=== PATIENT | male | born 1990 | race Caucasian/White ===

== ENCOUNTER 2018-05-10 11:37 | Inpatient (IN) ==
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
[2018-05-10 14:06] LABS: Baso % (Auto) 0.2 % (0.0-2.0); Eos % (Auto) 0.4 % (0.0-4.0); Hematocrit 48.3 % (39.0-51.0); Hemoglobin 16.1 gm/dL (13.0-17.0); Lymph # (Auto) 0.9 th/mm3 (1.0-4.8); Lymph % (Auto) 12.1 % (9.0-44.0); Mean Corpuscular HGB Conc 33.3 % (32.0-36.0); Mean Corpuscular Hemoglobin 32.1 pg (27.0-34.0); Mean Corpuscular Volume 96.2 fL (80.0-100.0); Mean Platelet Volume 8.5 fL (7.0-11.0); Mono # (Auto) 0.6 th/mm3 (0.0-0.9); Mono % (Auto) 8.9 % (0.0-8.0); Neut # (Auto) 5.5 th/mm3 (1.8-7.7); Neut % (Auto) 78.4 % (16.0-70.0); Platelet Count 215 th/mm3 (150-450); Red Blood Count 5.02 mil/mm3 (4.50-5.90); Red Cell Distribution Width 13.7 % (11.6-17.2)
[2018-05-10 14:21] LABS: Alanine Aminotransferase 19 U/L (12-78); Albumin 4.2 g/dL (3.4-5.0); Anion Gap 9 meq/L (5-15); Aspartate Aminotransferase 11 U/L (15-37); Blood Urea Nitrogen 15 mg/dL (7-18); Calcium 8.9 mg/dL (8.5-10.1); Carbon Dioxide 24.9 meq/L (21.0-32.0); Chloride 106 meq/L (98-107); Glomerular Filtration Rate Greater Than 89 mL/min (>89); Glucose,Random 116 mg/dL (74-106); Magnesium 2.2 mg/dL (1.5-2.5); Potassium 3.7 meq/L (3.5-5.1); Sodium 140 meq/L (136-145)
[2018-05-10 14:31] LABS: Alkaline Phosphatase 65 U/L (45-117); Thyroid Stimulating Hormone 0.295 uIU/mL (0.358-3.740); Total Protein 7.8 g/dL (6.4-8.2)
[2018-05-10] MEDS ORDERED: QUEtiapine 25 MG Tablet PO ONE (15:27)
[2018-05-10 16:35] LABS: Amphetamine Screen,Urine Neg (Neg); Barbiturate Screen,Urine Neg (Neg); Cannabinoid Screen,Urine Pos (Neg); Cocaine Screen,Urine Neg (Neg)
[2018-05-10 16:38] LABS: Opiate Screen,Urine Neg (Neg)
[2018-05-10] MEDS ORDERED: Aluminum/Magnesium/Simethacone Susp 30 ML UDC PO PRN (20:19)
[2018-05-10] MEDS ORDERED: Acetaminophen 325 MG Tablet PO PRN (20:19)
[2018-05-11 11:12] LABS: Carbon Dioxide 29.7 meq/L (21.0-32.0); Potassium 4.1 meq/L (3.5-5.1)
[2018-05-11 11:15] LABS: Chol/HDL Ratio 3.35 Ratio
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
[2018-05-11 14:37] LABS: Hemoglobin A1c 5.1 % (4.3-6.0)
[2018-05-11] MEDS: LORazepam 1 MG Tablet PO PRN (17:22)
[2018-05-11] MEDS: Gabapentin 300 MG Capsule PO SCH (17:22)
[2018-05-12] MEDS: Gabapentin 300 MG Capsule PO SCH ×3 (08:45→17:54)
--- NOTE | 2018-05-12 10:32 | P.CONPSY ---
Provisional Diagnosis Admission Date: May 10, 2018 18:19 [place] I.: 1. Schizophrenia, unspecified type, acute exacerbation 2. Generalized anxiety disorder [place] II.: Deferred History of Present Illness Service: Psychiatry Consult date: 05/12/18 Requesting Physician: Vaibhav Morales Reason for Consult: Second opinion for involuntary psychiatric hospitalization Primary Care Provider: UNKNOWN History of Present Illness: From Dr. Morales's H&P: Patient is a 28-year-old male with a history of schizophrenia and ADD. He presents here [facility] [place] [facility] with increased symptoms of agitation and psychosis. Patient is affiliated with [facility] and gets regular in [employer] sustainA injections. Per mother's last dose of an INVega 156 mg was on April 26. He has poor compliance with his p.o. medications. Those medications include Wellbutrin 150 mg daily, Seroquel 50 mg p.o. nightly and Cogentin 1 mg p.o. nightly. Per record and mother patient has been increasingly aggressive and bizarre. Patient is very angry at his father because he would not let him drive his own car and a cross country trip. Patient then accused his father putting shampoo in his food and wanted to poison him. He is also been given threatening looks to his family. He had an argument with his family concerning his dogs and he slapped his tWo blind dogs. Patient says he was angry because they were breathing with each other but mother says that the dogs are neutered and patient was angry that the dogs are gama. Patient has been having increasingly auditory hallucinations visual hallucinations and bizarre delusions of a girl named Nury. This is somebody that he knew from childhood and has no contact with. This Nury is yelling at him telling him he is dominant and appears at night not letting him sleep. Mood and affect is very anxious as reported by patient and his mother. He does deny depressed mood. He denies suicidal or homicidal ideation intent or plan. On my exam today, 05/12: Patient seen and examined with nurse. Chart reviewed. Case discussed with nursing staff. I have discussed the purpose of my evaluation with the patient today. On my examination today, the patient presents as delayed with significant thought blocking. He appears internally preoccupied although he denies audiovisual hallucinations. He does admit to some paranoia and says that people are trying to wake him up in the middle of the night. He does admit to lashing out violently at the family dog and says that he has a history of "trying to beat up a dog for biting my nephew" when he was about 16 years old. He denies any suicidal or violent ideation presently. He says that he likes the medications being provided to him because they make him feel "peaceful." Mood is "decent." Sleep is fair. No hypomanic or manic symptoms. Remainder of the psychiatric ROS is negative. No acute physical complaints. Past psychiatric history: The patient has a history of schizophrenia. He follows at [facility] in [place]. He reports one remote psychiatric admission. He denies a history of suicide attempts. He does admit to a history of aggression against a dog as noted above. Family history: The patient reports that his sister has dyslexia and 1 of his cousins has intellectual disability. He denies a family history of suicide. Chemical dependency history: The patient denies any abuse of drugs or alcohol. Patient's urine toxicology is positive for THC. Social history: The patient lives with his family. He has his GED. He is disabled. He is single with no children. He does keep a BB gun but denies ever having had a suicide plan or violent plan involving a gun. He denies any legal history. I have spoken with patient's mother/healthcare surrogate, Chelsea Roland today by phone. Ms. Roland notes that the patient was diagnosed with schizophrenia 4 years ago and has had multiple medication trials since then. She notes that he has been at least partially stabilized on Invega Sustenna, although he does become somewhat more symptomatic towards the end of the dosing interval. He has reportedly recently been experiencing visual hallucinations of a friend from childhood and told his mother on the phone last night that he was awoken on the unit by several of his old friends. He has no reported history of violence and is typically easy going per mother. He does reportedly believe that his family is trying to poison him. Extensive psychoeducation regarding schizophrenia diagnosis provided to mother. We reviewed treatment plan as set up by Dr. Morales. We discussed patient's legal status and plan for [place] [address] on . I spent approximately 14 minutes in telephone consultation with patient's mother. Review of Systems All other systems reviewed negative except as stated in HPI PMFSH - History History Provided By: Patient - Medical History Medical History: Medical History (Last Reviewed 05/11/18 @ 13:24 by Vaibhav Morales DO) ADHD Anxiety Schizophrenia - Surgical History Surgical History: Surgical History (Last Reviewed 05/11/18 @ 13:24 by Vaibhav Morales DO) No history of previous surgery - Tobacco History Second Hand Smoke Exposure: Yes Tobacco Use In Past 30 Days: Yes Smoking Status: Current every day smoker Tobacco Type: Cigarettes - Alcohol History How Often Do You Have a Drink Containing Alcohol: Monthly or less - Substance Use History Substance History: No History of Abuse - Travel History Recent Travel in the [facility] Within the Last 8 Weeks: No Recent Travel Out of the Country Within the Last 8 Weeks: No - Immunization History Tetanus Immunization: >5 Years Hx Influenza Vaccine This Season: No Medications and Allergies Active Medications: Active Medications Acetaminophen (Tylenol) 650 mg PO Q4H PRN PRN Reason: PAIN 1-5 OR TEMP > 101 Al Hydrox/Mg Hydrox/Simethicone (Mag-Al Plus Susp Liq) 30 ml PO Q6H PRN PRN Reason: DYSPEPSIA Al Hydroxide/Mg Hydroxide (Milk Of Magnesia Liq) 30 ml PO DAILY PRN PRN Reason: CONSTIPATION Benztropine Mesylate (Cogentin) 1 mg PO BID [facility] Last Admin: 05/12/18 08:45 Dose: 1 mg Gabapentin (Neurontin) 300 mg PO TID [facility] Last Admin: 05/12/18 08:45 Dose: 300 mg Lorazepam (Ativan) 1 mg PO Q6H PRN PRN Reason: MOD-SEVERE ANXIETY Last Admin: 05/11/18 17:22 Dose: 1 mg Lorazepam (Ativan Inj) 1 mg IM Q6H PRN PRN Reason: MOD-SEVERE ANXIETY Nicotine (Habitrol 21 Mg Patch.24 Hr) 1 patch T-DERMAL DAILY [facility] Last Admin: 05/12/18 08:47 Dose: Not Given Patch Removal (Remove Old Patch) 1 each T-DERMAL HS [facility] Last Admin: 05/11/18 20:25 Dose: Not Given Risperidone (Risperdal) 1 mg PO BID [facility] Last Admin: 05/12/18 08:45 Dose: 1 mg Allergies Allergy/AdvReac Type Severity Reaction Status Date / Time No Known Drug Allergies Allergy Mild Anxiety Verified 05/10/18 12:43 Home Medications Medication Instructions Recorded Confirmed Type benztropine 1 mg PO 05/10/18 05/10/18 History bupropion HCl [Wellbutrin XL] 150 mg PO DAILY 05/10/18 05/10/18 History paliperidone palmitate [Invega 156 mg IM QMONTH 05/10/18 05/10/18 History Sustenna] quetiapine [Seroquel] 50 mg PO HS 05/10/18 05/10/18 History Exam Vital signs: Vital Signs 05/12/18 05:46 Temperature 98.4 F Pulse Rate 86 Respiratory Rate 17 Blood Pressure 132/70 Pulse Oximetry 100 Narrative: Physical examination was completed by the ED provider. On my examination today , the patient appears to be in no acute physical distress. No motor abnormalities noted. No hand tremor, no dystonia, no dyskinesia noted. Laboratories reviewed: Laboratory Tests 05/10/18 05/10/18 05/10/18 12:08 12:08 14:00 WBC 7.0 Hgb 16.1 Plt Count 215 Neut # (Auto) 5.5 Sodium Potassium Chloride Carbon Dioxide Anion Gap BUN Creatinine Estimated GFR Random Glucose Hemoglobin A1c AST 11 L ALT 19 Alkaline Phosphatase 65 TSH 0.295 L U Cannabinoids Screen Pos H Serum Alcohol Less than 3 05/11/18 05/11/18 09:39 09:39 WBC Hgb Plt Count Neut # (Auto) Sodium 138 Potassium 4.1 Chloride 105 Carbon Dioxide 29.7 Anion Gap 3 L BUN 15 Creatinine 1.03 Estimated GFR 87 L Random Glucose 79 Hemoglobin A1c 5.1 AST ALT Alkaline Phosphatase TSH U Cannabinoids Screen Serum Alcohol Mental Status Examination Appearance: Appropriate Consciousness: Alert Orientation: x4 Motor Activity: Normal gait Speech: Hesitant Language: Adequate Fund of Knowledge: Adequate Attention and Concentration: Easily distracted Memory: Impaired (Psychosis interferes) Mood: Other ("Decent") Affect: Other (Blunted, tending towards flat) Thought Process & Associations: Intact Thought Content: Hallucinations, Thought blocking, Delusional Hallucination Type: Other (Appears internally preoccupied) Delusion Type: Paranoid Suicidal Ideation: No Suicidal Plan: No Suicidal Intention: No Homicidal Ideation: No Homicidal Plan: No Homicidal Intention: No Insight: Poor Judgment: Poor Assessment and Plan - Assessment (1) Schizophrenia of the types described in 295.0-295.9 occurring in children Code(s): F20.9 - Schizophrenia, unspecified Status: Acute (2) Generalized anxiety disorder Code(s): F41.1 - Generalized anxiety disorder Status: Acute - Plan Plan: Given the circumstances of the patient's presentation here and his presentation on my examination today, I concur with Dr. Morales that the patient meets criteria for involuntary psychiatric hospitalization under the [place]. I am concerned that the patient is somewhat unpredictable with respect to risk for aggressive behavior in the context of decompensated psychosis. I have completed the second opinion paperwork. I concur with Dr. Morales that the patient is presently in need of a healthcare surrogate as he is not capacitated to consent for medication/treatment. I have completed the health care surrogate /guardian advocate paperwork. I will be assuming care of the patient's case. Titrate patient's Risperdal to 1.5 mg twice daily to manage psychotic symptoms; this is augmenting Invega Sustenna, reportedly administered in mid April. Continue gabapentin as ordered. Check EKG for QTc [UPDATE: read as sinus rhythm , QTc not prolonged]. Check free T4 [wnl]. Continue to monitor on the inpatient unit. Continue other medications and care as ordered. Justification for Continued Inpatient Stay: Medication changes. Impairment in reality construction. High risk for decompensation in less restrictive environment. Discharge Planning: Pending psychiatric stabilization. I have ordered that the patient be referred to the FACT team at [facility]. Request Healthcare Surrogate/Guardian Advocate?: Yes
--- NOTE | 2018-05-12 14:48 | ECG ---
Date Performed: 05/12/2018 Time Performed: 13:48:24 PTAGE: 28 years EKG: Sinus rhythm WITH SINUS ARRHYTHMIA NORMAL ECG NO PREVIOUS TRACING DOCTOR: Feroz Dao Interpretating Date/Time 05/12/2018 14:47:44
[2018-05-13] MEDS: Gabapentin 300 MG Capsule PO SCH ×3 (08:53→18:07)
--- NOTE | 2018-05-13 10:02 | P.PNPSY ---
Subjective Chief Complaint: psychosis Remarks: Patient seen and examined with nurse. Chart reviewed. Case discussed with nursing. Per nursing, patient was expressing regret at his aggressive behavior toward dog. Case discussed in treatment team. On my exam today, patient presents as more spontaneous with less thought blocking. He is quite discharge focused and says that being on the unit is going to "make my head explode." With further questioning, some degree of paranoia is suspected to be driving his focus on discharge. He reports AH are decreasing. He believes he should no have been hospitalized because his family should have given him a "second chance" after his aggressive behavior at home prior to having him [facility] [address]. No medication side effects. No physical complaints. I called over to [facility] to confirm last Sustenna date and dose: 156mg IM was administered on 04/29/18. Vital Signs Temp Pulse Resp BP Pulse Ox 05/13/18 05:34 98.6 F 108 H 17 105/71 100 05/12/18 17:00 98.8 F 94 H 18 122/66 98 Labs reviewed. Review of Systems All other systems reviewed negative except as stated in HPI (Limitation: Psychosis) Mental Status Examination Appearance: Appropriate Consciousness: Alert Orientation: x4 Motor Activity: Normal gait, Other (No motor abnormalities noted.) Speech: Unremarkable Language: Adequate Fund of Knowledge: Adequate Attention and Concentration: Easily distracted Memory: Impaired (Psychosis interferes) Mood: Anxious Affect: Anxious Thought Process & Associations: Intact Thought Content: Hallucinations, Thought blocking (decreasing), Delusional Hallucination Type: Auditory (decreasing) Delusion Type: Paranoid Suicidal Ideation: No Homicidal Ideation: No Insight: Poor Judgment: Poor Assessment and Plan - Assessment (1) Schizophrenia of the types described in 295.0-295.9 occurring in children Code(s): F20.9 - Schizophrenia, unspecified Status: Acute (2) Generalized anxiety disorder Code(s): F41.1 - Generalized anxiety disorder Status: Acute - Plan Plan: Titrate Risperdal to 2mg BID supplementing Sustenna to target residual psychotic symptoms. Patient might benefit from larger Sustenna dose when this is next due. Continue to monitor on inpatient unit. Continue other medications and care as ordered. Justification for Continued Inpatient Stay: Medication changes. Impairment in reality construction. High risk for decompensation in less restrictive environment. Discharge Planning: Pending psychiatric stabilization. Request Healthcare Surrogate/Guardian Advocate?: Yes
[2018-05-14] MEDS: Gabapentin 300 MG Capsule PO SCH ×2 (08:28→12:30)
[2018-05-14] MEDS: LORazepam 1 MG Tablet PO PRN ×2 (08:28→15:41)
--- NOTE | 2018-05-14 08:32 | P.PNPSY ---
Subjective Chief Complaint: psychosis Remarks: Patient seen and examined with nurse. Chart reviewed. Case discussed with nursing staff. No aggressive behavior noted overnight. Patient did articulate to nursing staff that he felt like he was inside a glass box. On my examination today, the patient presents as somewhat fretful and anxious. He says that he was bothered by "childhood friends" overnight who were shaking his body and keeping him up. Patient remains discharge focused and insists that his psychiatric symptoms are worsened by being on the inpatient unit. He denies any audiovisual hallucinations presently. Denies any command auditory hallucinations to hurt self/others. He denies any suicidal or homicidal ideation with mood. He feels like his medications are working well and denies side effects from medications. No physical complaints. Spoke with patient's mother/HCS by phone. We review patient's progress on the unit and also discussed current medication regimen. Mother does not feel support patient's discharge home today, as patient wishes. We discuss plan for [address] tomorrow. I have recommended that mother secure home environment of potential means of harm to self/others. Mother notes that she keeps a gun for protection, and she will secure this. Vital Signs Temp Pulse Resp BP Pulse Ox 05/14/18 05:51 98.7 F 80 18 118/72 99 05/13/18 18:30 98.1 F 89 17 137/77 99 Labs reviewed. Review of Systems All other systems reviewed negative except as stated in HPI Mental Status Examination Appearance: Appropriate Consciousness: Alert Orientation: x4 Motor Activity: Normal gait, Other (No hand tremor, no dystonia, no dyskinesia, no other motor abnormalities noted.) Speech: Unremarkable Language: Adequate Fund of Knowledge: Adequate Attention and Concentration: Easily distracted Memory: Impaired (Psychosis interferes) Mood: Anxious Affect: Anxious Thought Process & Associations: Intact Thought Content: Hallucinations, Delusional Hallucination Type: Auditory (Overnight, see above) Delusion Type: Paranoid Suicidal Ideation: No Homicidal Ideation: No Insight: Poor Judgment: Poor Assessment and Plan - Assessment (1) Schizophrenia of the types described in 295.0-295.9 occurring in children Code(s): F20.9 - Schizophrenia, unspecified Status: Acute (2) Generalized anxiety disorder Code(s): F41.1 - Generalized anxiety disorder Status: Acute - Plan Plan: Titrate gabapentin to help manage anxiety. To consider further titration of patient's Risperdal augmenting Invega Sustenna, although I will continue with current dose for now. Continue to monitor on inpatient unit. Continue other care as ordered. Patient counseled regarding need for abstinence from substances of abuse. Justification for Continued Inpatient Stay: Medication changes. Impairment in reality construction. High risk for decompensation in less restrictive environment. Discharge Planning: Pending psychiatric stabilization. [address] tomorrow. Request Healthcare Surrogate/Guardian Advocate?: Yes
[2018-05-14] MEDS ORDERED: Influenza (Quadrivalent) Vaccine 0.5 ML Syringe IM ONE (09:00)
[2018-05-14] MEDS: Gabapentin 400 MG Capsule PO SCH (17:21)
[2018-05-15] MEDS: Gabapentin 400 MG Capsule PO SCH ×3 (08:29→17:30)
[2018-05-15] MEDS: LORazepam 1 MG Tablet PO PRN ×2 (09:59→15:07)
--- NOTE | 2018-05-15 11:49 | P.PNPSY ---
Subjective Chief Complaint: psychosis Remarks: Patient seen and examined with nurse. Chart reviewed. Case discussed with nursing staff. Nurse notes patient seemed better yesterday after receiving 2 doses of p.r.n. Ativan. Nurse alerts me that nurse discovered after the fact that consent had not been obtained for this medication by admitting physician. On my exam, patient remains quite discharge focused. He endorses CAH as recently as yesterday evening to hurt somebody. Patient clarifies that the were instructing him to hurt 'uNry' who is also felt to represent a hallucination. Patient notes that Nury is "extremely annoying, she makes me hallucinate." He denies any SI or HI presently. He insists that "things are back to normal now" and he feels ready for discharge. Denies side effects from medications. No physical complaints. Spoke with patient's mother/HCS. She expresses appreciation for care patient has received on the unit. She visited with patient on the unit last night and felt that he was "so different, very sincere." She feels that patient is "much better than what he was." Mother was initially advocating for patient's discharge today but does have some reservations when I discuss with her symptoms patient reported to me today. Still, mother notes that if patient were to be discharged by the cylinder tester today she would not oppose it noting "if something were to happen, I know how to call 911." I obtain consent from mother for the Ativan. Vital Signs Temp Pulse Resp BP Pulse Ox 05/15/18 06:11 99.0 F 98 H 18 119/68 99 05/14/18 16:09 98.5 F 86 18 118/76 99 Intake and Output 05/14/18 05/15/18 05/15/18 22:59 06:59 14:59 Other: Weight 63.9 kg Labs reviewed. Review of Systems All other systems reviewed negative except as stated in HPI Mental Status Examination Appearance: Appropriate Consciousness: Alert Orientation: x4 Motor Activity: Normal gait, Other (No abnormal motor movements noted.) Speech: Unremarkable Language: Adequate Fund of Knowledge: Adequate Attention and Concentration: Easily distracted Memory: Impaired (Psychosis interferes) Mood: Anxious Affect: Anxious Thought Process & Associations: Intact Thought Content: Hallucinations, Delusional Hallucination Type: Auditory (as noted above) Delusion Type: Paranoid Suicidal Ideation: No Homicidal Ideation: No Insight: Poor Judgment: Poor Assessment and Plan - Assessment (1) Schizophrenia of the types described in 295.0-295.9 occurring in children Code(s): F20.9 - Schizophrenia, unspecified Status: Acute (2) Generalized anxiety disorder Code(s): F41.1 - Generalized anxiety disorder Status: Acute - Plan Plan: Titrate Risperdal to 3mg BID to augment Invega Sustenna for ongoing psychotic symptoms. To considered addition of scheduled Ativan as patient reportedly did well with addition of this agent. E-FORCSE report reviewed. Continue to monitor on inpatient unit. Continue other care as ordered. Patient's case was presented to the [place] [facility], and the patient was retained on the unit by the cylinder tester with mother to serve as guardian advocate. Justification for Continued Inpatient Stay: Medication changes. Impairment in reality construction. High risk for decompensation and less restrictive environment. Discharge Planning: Pending psychiatric stabilization. Request Healthcare Surrogate/Guardian Advocate?: Yes
--- NOTE | 2018-05-16 09:51 | P.TTN ---
- Patient Problems Problems: 1. Discharge planning 2. Medication compliance 3. Knowledge deficit 4. Lack of coping skills - Progress Toward Goals Provider Present: Dr. Arnoldo Aparicio (Dr. Aparicio is titrating medication Risperdal, patient needs to remain for further stabilization.) Provider Input: 05/13/2018 He is very discharged focused. Will continue medications of Invega Sustenna. Some hallucinations. Talks about his childhood friend Nury. Psychiatric Counselors Present: Tolu Diane Jr., [facility] (When stable, patient will return to his mother's residence in the [facility]. Tentative discharge date Saturday, May 19, 2018.), Other Psychiatric Therapist Input: 05/13/2018 Sees spirits that encourage him to do positive things. Patient still focused on discharge. Group Spec/RT/OT/CÁRDENAS Present: MELIA Dozier (Patient attends groups and is redirectable.) Group Spec/RT/OT/CÁRDENAS Input: 05/13/2018 He participates in a few groups but appears internally preocuppied. - Documentation Teaching Recipient: Patient
[2018-05-16] MEDS: Gabapentin 400 MG Capsule PO SCH ×3 (10:32→18:01)
--- NOTE | 2018-05-16 10:35 | P.PNPSY ---
Subjective Chief Complaint: psychosis Remarks: Patient seen and examined with nurse. Chart reviewed. Case discussed with nursing staff who reports patient is not denying any hallucinations. Case discussed in treatment team. On my exam, patient is calm and cooperative. He says that he had no hallucinations overnight. He denies any suicidal or homicidal ideation. Denies any side effects from medications. No physical complaints. Agreeable to remaining through the weekend for further observation. Vital Signs Temp Pulse Resp BP Pulse Ox 05/16/18 06:00 98.4 F 82 17 111/70 98 05/15/18 16:51 98.0 F 99 H 17 124/75 96 Labs reviewed. No new labs. Review of Systems All other systems reviewed negative except as stated in HPI Mental Status Examination Appearance: Appropriate Consciousness: Alert Orientation: x4 Motor Activity: Normal gait, Other (No motor abnormalities noted) Speech: Unremarkable Language: Adequate Fund of Knowledge: Adequate Attention and Concentration: Adequate Memory: Unremarkable Mood: Appropriate Affect: Blunt (Still mildly anxious) Thought Process & Associations: Intact Thought Content: Appropriate Hallucination Type: None Delusion Type: None Suicidal Ideation: No Suicidal Plan: No Suicidal Intention: No Homicidal Ideation: No Homicidal Plan: No Homicidal Intention: No Insight: Poor Judgment: Poor Assessment and Plan - Assessment (1) Schizophrenia of the types described in 295.0-295.9 occurring in children Code(s): F20.9 - Schizophrenia, unspecified Status: Acute (2) Generalized anxiety disorder Code(s): F41.1 - Generalized anxiety disorder Status: Acute - Plan Plan: Continue Risperdal augmenting Invega Sustenna. Continue gabapentin as ordered. Continue to monitor on the inpatient unit. Continue other medications and care as ordered. Justification for Continued Inpatient Stay: Risk for decompensation in less restrictive environment. Monitoring for sustained resolution of delusions and hallucinations. Discharge Planning: Possible discharge after the weekend. Request Healthcare Surrogate/Guardian Advocate?: Yes
[2018-05-17] MEDS: Gabapentin 400 MG Capsule PO SCH ×3 (09:01→18:23)
--- NOTE | 2018-05-17 15:33 | P.PNPSY ---
Subjective Chief Complaint: psychosis Remarks: Pt seen and discussed with staff. He has been compliant with medications and care. He is tolerating medications without side effects. He still appears to be responding to internal stimuli on the unit. Staff report that he has been very guarded and watchful on unit. Today he admitted to RN that he is still hearing AH of "Nury". He reports to MD that "Nury" can hear him as well and she also gets upset and angry. "She will never go away because we knew each other years ago." Mental Status Examination Appearance: Appropriate Consciousness: Alert Orientation: x4 Motor Activity: Normal gait, Other (No motor abnormalities noted) Speech: Unremarkable Language: Adequate Fund of Knowledge: Adequate Attention and Concentration: Adequate Memory: Unremarkable Mood: Appropriate Affect: Blunt (Still mildly anxious) Thought Process & Associations: Intact Thought Content: Hallucinations Hallucination Type: Auditory Delusion Type: None Suicidal Ideation: No Suicidal Plan: No Suicidal Intention: No Homicidal Ideation: No Homicidal Plan: No Homicidal Intention: No Insight: Poor Judgment: Poor Assessment and Plan - Assessment (1) Schizophrenia of the types described in 295.0-295.9 occurring in children Code(s): F20.9 - Schizophrenia, unspecified Status: Acute (2) Generalized anxiety disorder Code(s): F41.1 - Generalized anxiety disorder Status: Acute - Plan Plan: continue current tx plan Justification for Continued Inpatient Stay: risk of decompensation Request Healthcare Surrogate/Guardian Advocate?: Yes
[2018-05-18] MEDS ORDERED: Influenza (Quadrivalent) Vaccine 0.5 ML Syringe IM ONE (09:00)
[2018-05-18] MEDS: Gabapentin 400 MG Capsule PO SCH ×3 (09:39→18:00)
--- NOTE | 2018-05-18 14:27 | P.PNPSY ---
Subjective Chief Complaint: psychosis Remarks: Reviewed electronic record and discussed with nursing staff. Rounded with DAVID Whitlock. Patient is internally stimulated. He states that a voice he refers to as "Nury" was bothering him , but she has slowed down. He feels that he is struggling on the oral medications and wants to know if he can go back on a VILLA. He is cooperative, pleasant and quiet. Spends most of the time in his room. Eating and sleeping well. Review of Systems All other systems reviewed negative except as stated in HPI Mental Status Examination Appearance: Appropriate Consciousness: Alert Orientation: x4 Motor Activity: Normal gait, Other (No motor abnormalities noted) Speech: Unremarkable Language: Adequate Fund of Knowledge: Adequate Attention and Concentration: Adequate Memory: Unremarkable Mood: Appropriate Affect: Blunt (Still mildly anxious) Thought Process & Associations: Intact Thought Content: Hallucinations Hallucination Type: Auditory Delusion Type: None Suicidal Ideation: No Suicidal Plan: No Suicidal Intention: No Homicidal Ideation: No Homicidal Plan: No Homicidal Intention: No Insight: Poor Judgment: Poor Assessment and Plan - Assessment (1) Schizophrenia, acute Code(s): F23 - Brief psychotic disorder Status: Acute - Plan Plan: continue current tx plan Justification for Continued Inpatient Stay: Moving patient to a less restrictive environment may result in his decompensation. Request Healthcare Surrogate/Guardian Advocate?: Yes
[2018-05-18] MEDS: LORazepam 1 MG Tablet PO PRN (22:34)
[2018-05-19] MEDS: Gabapentin 400 MG Capsule PO SCH ×2 (08:52→12:54)
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
== END 2018-05-19 13:30 | disposition home or self-care (01) ==
LOC: NEDAMB 11:37 → NEPJ 18:19 → NEDA 18:19 → H270 19:29
PROVIDERS: ADMIT Psychiatry & Neurology Psychiatry; ATTEND Psychiatry & Neurology Psychiatry